=== PATIENT | female | born 1980 | race Caucasian/White ===

== ENCOUNTER 2017-11-04 16:16 | Inpatient (IN) ==
[2017-11-04 20:59] LABS: Basophils % 0.2 % (0.0-0.8); Eosinophils % 0.3 % (0.00-10.9); Hematocrit 36.7 VOL% (35.7-47.0); Hemoglobin 11.5 GM/DL (12.0-16.0); Immature Granulocytes % 0.3 %; Immature Granulocytes Absolute 0.04 #; Lymphocytes # 1.6 10*3/uL (1.4-4.0); Lymphocytes % 13.4 % (21.3-54.2); Mean Corpuscular HGB Conc 31.3 GM/DL (32-36); Mean Corpuscular Hemoglobin 28 PG (27-34); Mean Corpuscular Volume 87.8 FL (87-102); Mean Platelet Volume 11.2 FL (9.6-12.0); Monocytes # 0.7 10*3/uL (0.11-0.8); Monocytes % 6.2 % (1.7-12.7); Neutrophils # 9.3 10*3/uL (1.4-7.4); Neutrophils % 79.6 % (38.7-73.9); Platelet Count 213 T/CUMM (130-400); Red Blood Count 4.18 MC/CUMM (3.8-5.5); Red Cell Distribution Width 14.1 % (9.3-17.3); White Blood Count 11.8 T/CUMM (4-12)
[2017-11-04 21:43] LABS: Albumin 3.5 G/DL (3.4-5.0); Bilirubin,Total 0.4 MG/DL (0.2-1.0); Calcium 8.5 MG/DL (8.5-10.1); Osmolality,Calculated 274.7 MOS/KG (273-304); Potassium 3.4 MMOL/L (3.5-5.1); Total Protein 6.9 G/DL (6.4-8.3)
[2017-11-04 22:12] LABS: Bilirubin,Urine Negative (Negative); Blood, Urine Moderate mg/dL (Negative); Glucose,Urine (UA) Negative (Negative); Ketones,Urine Negative (Negative); Mucus,Urine Few /LPF (Occasional); Nitrite,Urine Negative (Negative); Protein,Urine 30 MG/DL; RBC,Urine 19 /HPF (0-4); Squamous Epithelial Cell,Urine Few /HPF (0-10); Urine Color Yellow (Yellow); WBC,Urine 61 /HPF (0-6)
[2017-11-04 22:13] LABS: Apearance,Urine Clear (Clear)
[2017-11-04] MEDS ORDERED: ONDANSETRON 4 MG/2 ML VIAL IV PRN (22:34)
[2017-11-04] MEDS ORDERED: MORPHINE 2 MG/1 ML SYRINGE IV PRN (22:34)
[2017-11-04] MEDS: cefOXitin 2,000 MG in SYRINGE 1 EACH IV SCH (23:37)
[2017-11-04] MEDS: DEXTROSE 5% LACTATED RINGERS 1,000 ML IV SCH (23:41)
[2017-11-05] MEDS: AZTREONAM 1,000 MG in SYRINGE 1 EACH IV SCH ×3 (04:10→19:53)
[2017-11-05] MEDS: metroNIDAZOLE INJ 500 MG in PREMIX 1 EACH IV SCH ×3 (04:20→19:58)
[2017-11-05] MEDS: cefOXitin 2,000 MG in SYRINGE 1 EACH IV SCH ×3 (05:56→17:14)
[2017-11-05] MEDS: DEXTROSE 5% LACTATED RINGERS 1,000 ML IV SCH ×2 (06:44→11:01)
[2017-11-05] MEDS: PANTOPRAZOLE 40 MG TABLET PO SCH (08:23)
[2017-11-05] MEDS ORDERED: BUPIVACAINE 0.25% 50 ML VIAL ONE (11:40)
[2017-11-05] MEDS ORDERED: LIDOCAINE 1%/EPI INJ 20 ML VIAL ONE (11:40)
[2017-11-05] MEDS ORDERED: ONDANSETRON 4 MG/2 ML VIAL IV PRN (13:37)
[2017-11-05] MEDS ORDERED: HYDROmorphone 2 MG/1 ML VIAL IV PRN (13:37)
[2017-11-05] MEDS ORDERED: ACETAMINOPHEN 325 MG TABLET PO PRN (13:37)
[2017-11-05] MEDS ORDERED: ONDANSETRON 4 MG/2 ML VIAL ONE (13:57)
[2017-11-05] MEDS ORDERED: PROPOFOL 200 MG/20 ML VIAL IV ONE (13:57)
[2017-11-05] MEDS ORDERED: NEOSTIGMINE 10 MG/10 ML VIAL ONE (13:57)
[2017-11-05] MEDS ORDERED: GLYCOPYRROLATE 0.4 MG/2 ML VIAL ONE (13:57)
[2017-11-05] MEDS ORDERED: ACETAMINOPHEN 1,000 MG/100 ML VIAL IV ONE (13:57)
[2017-11-05] MEDS ORDERED: fentaNYL 100 MCG/2 ML VIAL ONE ×2 (13:57→14:00)
[2017-11-05] MEDS ORDERED: MIDAZOLAM 2 MG/2 ML VIAL ONE (13:57)
[2017-11-05] MEDS ORDERED: ROCURONIUM 100 MG/10 ML VIAL IV ONE (13:58)
[2017-11-05] MEDS: KETOROLAC 15 MG/1 ML VIAL IV SCH ×2 (15:20→19:50)
[2017-11-05 17:56] LABS: Hematocrit 32.2 VOL% (35.7-47.0); Hemoglobin 10.2 GM/DL (12.0-16.0)
[2017-11-05] MEDS: DEXTROSE 5% NACL 0.45% 1,000 ML IV SCH (19:54)
[2017-11-06] MEDS ORDERED: SIMETHICONE CHEW 80 MG TABLET PO ONE (00:30)
[2017-11-06] MEDS: DEXTROSE 5% NACL 0.45% 1,000 ML IV SCH ×4 (00:40→20:39)
[2017-11-06] MEDS: cefOXitin 2,000 MG in SYRINGE 1 EACH IV SCH ×5 (00:45→23:26)
[2017-11-06] MEDS: KETOROLAC 15 MG/1 ML VIAL IV SCH ×4 (02:58→20:41)
[2017-11-06] MEDS: AZTREONAM 1,000 MG in SYRINGE 1 EACH IV SCH ×3 (03:51→20:42)
[2017-11-06] MEDS: metroNIDAZOLE INJ 500 MG in PREMIX 1 EACH IV SCH ×3 (03:57→20:45)
[2017-11-06 06:24] LABS: Basophils % 0.3 % (0.0-0.8); Eosinophils % 0.6 % (0.00-10.9); Hematocrit 32.9 VOL% (35.7-47.0); Hemoglobin 10.4 GM/DL (12.0-16.0); Immature Granulocytes % 0.5 %; Immature Granulocytes Absolute 0.03 #; Lymphocytes # 1.2 10*3/uL (1.4-4.0); Lymphocytes % 18.6 % (21.3-54.2); Mean Corpuscular HGB Conc 31.6 GM/DL (32-36); Mean Corpuscular Hemoglobin 28 PG (27-34); Mean Platelet Volume 11.4 FL (9.6-12.0); Monocytes # 0.7 10*3/uL (0.11-0.8); Neutrophils # 4.7 10*3/uL (1.4-7.4); Platelet Count 193 T/CUMM (130-400); Red Blood Count 3.74 MC/CUMM (3.8-5.5); Red Cell Distribution Width 14.3 % (9.3-17.3); White Blood Count 6.6 T/CUMM (4-12)
[2017-11-06 06:50] LABS: Calcium 8.4 MG/DL (8.5-10.1); Osmolality,Calculated 282.1 MOS/KG (273-304)
[2017-11-06] MEDS: PANTOPRAZOLE 40 MG TABLET PO SCH (09:43)
[2017-11-06] MEDS: ENOXAPARIN 40 MG/0.4 ML SYRINGE SUBCUT SCH (09:43)
[2017-11-06] MEDS ORDERED: DEXTROSE 50% 25 GM/50 ML VIAL IV PRN (10:52)
[2017-11-06] MEDS ORDERED: GLUCAGON 1 MG VIAL IM PRN (10:52)
[2017-11-06] MEDS: INSULIN REGULAR 100 UNIT/ML SUBCUT SCH ×3 (12:18→20:47)
[2017-11-07] MEDS ORDERED: BISACODYL 10 MG SUPP RECTAL ONE (00:30)
[2017-11-07] MEDS ORDERED: SIMETHICONE CHEW 80 MG TABLET PO ONE (00:30)
[2017-11-07] MEDS: KETOROLAC 15 MG/1 ML VIAL IV SCH ×3 (01:47→14:00)
[2017-11-07] MEDS: AZTREONAM 1,000 MG in SYRINGE 1 EACH IV SCH ×2 (03:13→11:33)
[2017-11-07] MEDS: metroNIDAZOLE INJ 500 MG in PREMIX 1 EACH IV SCH ×2 (03:17→11:36)
[2017-11-07] MEDS: cefOXitin 2,000 MG in SYRINGE 1 EACH IV SCH ×3 (05:28→17:00)
[2017-11-07] MEDS: DEXTROSE 5% NACL 0.45% 1,000 ML IV SCH ×2 (07:40→16:00)
[2017-11-07] MEDS: PANTOPRAZOLE 40 MG TABLET PO SCH (09:15)
[2017-11-07] MEDS: ENOXAPARIN 40 MG/0.4 ML SYRINGE SUBCUT SCH (09:15)
[2017-11-07] MEDS: INSULIN REGULAR 100 UNIT/ML SUBCUT SCH ×3 (09:27→15:27)
[2017-11-07 16:23] VITALS: BP 158/90
== END 2017-11-07 17:20 | disposition home or self-care (01) | DRG 342 ==
LOC: N.ED 16:16 → N.EDINP 22:34 → N.3E 23:01
PROVIDERS: ADMIT Specialist; ATTEND Specialist

== ENCOUNTER 2021-12-07 10:23 | Inpatient (IN) ==
[2021-12-07] MEDS ORDERED: KETOROLAC 30 MG/1 ML VIAL IV STA (12:07)
[2021-12-07] MEDS ORDERED: SODIUM CHLORIDE 0.9% 1,000 ML IV STA (12:07)
[2021-12-07] MEDS ORDERED: ONDANSETRON 4 MG/2 ML VIAL IV STA (12:07)
[2021-12-07 13:24] LABS: Basophils % 0.1 % (0.0-0.8); Eosinophils % 0.3 % (0.00-10.9); Hemoglobin 10.5 GM/DL (12.0-16.0); Immature Granulocytes % 0.5 %; Immature Granulocytes Absolute 0.05 #; Lymphocytes # 0.7 10*3/uL (1.4-4.0); Lymphocytes % 7.3 % (21.3-54.2); Mean Corpuscular Volume 86.8 FL (87-102); Mean Platelet Volume 11.1 FL (9.6-12.0); Monocytes % 4.1 % (1.7-12.7); Neutrophils % 87.7 % (38.7-73.9); Platelet Count 223 T/CUMM (130-400); Red Blood Count 4.03 MC/CUMM (3.8-5.5); Red Cell Distribution Width 15.5 % (9.3-17.3); White Blood Count 9.4 T/CUMM (4-12)
[2021-12-07 13:26] LABS: Alanine Aminotransferase 31 U/L (13-56); Albumin 3.1 G/DL (3.4-5.0); Alkaline Phosphatase 93 U/L (45-117); Amylase 10 U/L (25-115); Aspartate Amino Transferase 23 U/L (0-37); Bilirubin,Total < 0.39 MG/DL (0.20-1.00); Blood Urea Nitrogen 10 MG/DL (7-18); Carbon Dioxide 27 MMOL/L (21-32); Estimated Glom Filtration Rate 136 ML/MIN; Glucose 231 MG/DL (74-106); Osmolality,Calculated 275.1 MOS/KG (273-304); Potassium 4.2 MMOL/L (3.5-5.1); Sodium 135 MMOL/L (136-145); Total Protein 7.4 G/DL (6.4-8.2)
[2021-12-07 14:04] LABS: Bilirubin,Urine Negative (Negative); Blood, Urine Negative (Negative); Glucose,Urine (UA) >=500 mg/dL (Negative); Ketones,Urine 20 mg/dL (Negative); Mucus,Urine Occasional /LPF (Occasional); Nitrite,Urine Negative (Negative); Protein,Urine Negative; RBC,Urine 2 /HPF (0-4); Squamous Epithelial Cell,Urine Occasional /HPF (0-10); Urine Appearance CLEAR (Clear); Urine Color Yellow (Yellow); Urine Specific Gravity 1.024 (1.001-1.035); Urine Urobilinogen < 2.0 EU/DL (<2.0)
[2021-12-07] MEDS ORDERED: MORPHINE 2 MG/1 ML SYRINGE IV STA (16:25)
[2021-12-07] MEDS ORDERED: hydrALAZINE 20 MG/1 ML VIAL IV STA (16:57)
[2021-12-07] MEDS ORDERED: ONDANSETRON 4 MG/2 ML VIAL IV PRN ×2 (17:04→18:27)
[2021-12-07] MEDS ORDERED: MORPHINE 2 MG/1 ML SYRINGE IV PRN (17:04)
[2021-12-07] MEDS ORDERED: DEXTROSE 5% NACL 0.45% 1,000 ML IV SCH (17:30)
[2021-12-07] MEDS ORDERED: LEVOFLOXACIN INJ 500 MG/100 ML PREMIX IV SCH (17:30)
[2021-12-07] MEDS ORDERED: PROMETHAZINE 25 MG/1 ML VIAL IM PRN (18:27)
[2021-12-07] MEDS ORDERED: ALBUTEROL 2.5 MG/3 ML NEB RESP TX PRN (18:27)
[2021-12-07] MEDS ORDERED: hydrALAZINE 20 MG/1 ML VIAL IV PRN (18:27)
[2021-12-07] MEDS: LACTATED RINGERS 1,000 ML IV SCH (18:39)
[2021-12-07 19:48] LABS: Hematocrit 34.5 VOL% (35.7-47.0); Hemoglobin 10.3 GM/DL (12.0-16.0)
[2021-12-08 01:24] LABS: Hematocrit 33.2 VOL% (35.7-47.0); Hemoglobin 10.1 GM/DL (12.0-16.0)
[2021-12-08] MEDS: LACTATED RINGERS 1,000 ML IV SCH ×3 (03:30→22:17)
[2021-12-08 05:05] LABS: Basophils % 0.1 % (0.0-0.8); Eosinophils # 0.1 10*3/uL (0.0-0.87); Eosinophils % 0.7 % (0.00-10.9); Hematocrit 33.3 VOL% (35.7-47.0); Immature Granulocytes % 0.3 %; Immature Granulocytes Absolute 0.02 #; Lymphocytes % 13.1 % (21.3-54.2); Mean Corpuscular Volume 86.7 FL (87-102); Mean Platelet Volume 10.5 FL (9.6-12.0); Monocytes % 6.7 % (1.7-12.7); Neutrophils % 79.1 % (38.7-73.9); Platelet Count 235 T/CUMM (130-400); Red Blood Count 3.84 MC/CUMM (3.8-5.5); Red Cell Distribution Width 15.9 % (9.3-17.3); White Blood Count 7.3 T/CUMM (4-12)
[2021-12-08 05:14] LABS: INR 1.1; PT Patient Result 11.9 SECS (10.5-12.0)
[2021-12-08 05:28] LABS: Albumin 2.8 G/DL (3.4-5.0); Bilirubin,Total 0.5 MG/DL (0.20-1.00); Calcium 8.5 MG/DL (8.5-10.1); Osmolality,Calculated 274.1 MOS/KG (273-304); Potassium 3.7 MMOL/L (3.5-5.1); Total Protein 6.7 G/DL (6.4-8.2)
[2021-12-08 07:59] LABS: Hemoglobin 9.6 GM/DL (12.0-16.0)
[2021-12-08] MEDS ORDERED: PANTOPRAZOLE 40 MG VIAL IV SCH (09:00)
[2021-12-08] MEDS: PANTOPRAZOLE 40 MG TABLET PO SCH (09:18)
[2021-12-08] MEDS ORDERED: DEXTROSE 50% 25 GM/50 ML VIAL IV PRN (09:33)
[2021-12-08] MEDS ORDERED: GLUCAGON 1 MG VIAL IM PRN ×2 (09:33→15:50)
[2021-12-08] MEDS ORDERED: DEXTROSE 50% 25 GM/50 ML SYRINGE IV PRN (10:00)
[2021-12-08 10:01] LABS: Hemoglobin 9.3 GM/DL (12.0-16.0)
[2021-12-08] MEDS: INSULIN REGULAR 100 UNIT/ML SUBCUT SCH ×3 (11:30→22:06)
[2021-12-08] MEDS ORDERED: DEXTROSE 10% 25 GM/250 ML BAG IV PRN (15:58)
[2021-12-09] MEDS: LACTATED RINGERS 1,000 ML IV SCH (06:00)
[2021-12-09 08:37] LABS: Basophils % 0.2 % (0.0-0.8); Eosinophils # 0.1 10*3/uL (0.0-0.87); Eosinophils % 1.9 % (0.00-10.9); Hematocrit 31.9 VOL% (35.7-47.0); Hemoglobin 9.3 GM/DL (12.0-16.0); Immature Granulocytes % 0.6 %; Immature Granulocytes Absolute 0.03 #; Lymphocytes # 1.2 10*3/uL (1.4-4.0); Lymphocytes % 22.1 % (21.3-54.2); Mean Corpuscular HGB Conc 29.2 GM/DL (32-36); Mean Corpuscular Volume 89.1 FL (87-102); Mean Platelet Volume 10.4 FL (9.6-12.0); Neutrophils % 69.2 % (38.7-73.9); Platelet Count 182 T/CUMM (130-400); Red Blood Count 3.58 MC/CUMM (3.8-5.5); Red Cell Distribution Width 15.9 % (9.3-17.3); White Blood Count 5.2 T/CUMM (4-12)
[2021-12-09] MEDS: PANTOPRAZOLE 40 MG TABLET PO SCH (09:08)
[2021-12-09] MEDS: INSULIN REGULAR 100 UNIT/ML SUBCUT SCH ×2 (10:38→11:57)
[2021-12-09 12:00] VITALS: BP 143/67
== END 2021-12-09 12:35 | disposition home or self-care (01) | DRG 815 ==
LOC: N.ED 10:23 → N.3E 17:02 → N.EDINP 19:24 → N.3E 19:24 → N.EDINP 12-08 14:19 → N.ED 12-08 14:19
PROVIDERS: ADMIT Surgery; ATTEND Surgery